=== PATIENT | female | born 1945 | race Caucasian/White ===

== ENCOUNTER 2024-05-02 07:07 | Inpatient (IN) ==
--- NOTE | 2024-05-02 07:25 | Emergency Department Note ---
History of Present Illness General Chief complaint: Constipation Stated complaint: CONSTIPATION, ABD PAIN Time Seen by Provider: 05/02/24 07:13 History of Present Illness This is a 78-year-old female that presents to the emergency department via private vehicle with complaints of "constipation, abdominal pain". Patient presents today with daughter. Patient notes that for the past week she has had constipation. No bowel movement in over a week. She has tried increasing fiber, MiraLAX, milk of magnesia as well as 2 enemas 1 of which produced stool the other did not. She feels bloated and generalized abdominal pain. The patient denies any fevers. She does note some chills. She states that yesterday she presented to [facility] where a CT scan was performed of the abdomen pelvis that she was discharged home on medical magnesia with diagnosis of constipation. She states that she continues to have abdominal discomfort, bloating and now more pronounced discomfort in the right lower quadrant. She is concerned therefore prompting arrival here today. She notes that she is otherwise healthy other than hypothyroidism currently on medication. No known drug allergies. No pertinent surgeries. Home Medications Medication Instructions Recorded Confirmed Type levothyroxine 112 mcg tablet 112 mcg PO QAM 05/02/24 05/02/24 History Allergies Allergy/AdvReac Type Severity Reaction Status Date / Time No Known Allergies Allergy Verified 05/02/24 08:40 Past Med/Surg History Problem List (Updated 05/02/24 @ 10:35 by Brett Barnett PA-C) Abdominal pain (Acute) Renal cyst Asymptomatic bacteriuria Colonic obstruction (Acute) Cystocele with uterine prolapse Medical History Dyslipidemia Hypertension due to stress Hypothyroidism (acquired) Surgical History Hx of tonsillectomy Family History Other Diabetes Hypertension Denies family history of Ovarian cancer Prostate cancer Myocardial infarction Breast cancer Colorectal cancer Social History Smoking Status: Never smoker Second Hand Exposure: No; Do You Dip or Chew Tobacco: No; Hx Alcohol Use: No Preferred Language: Nauruan marital status: Current Living Situation: Spouse current occupational status: employed current occupation: [employer] in [place] How many Children do You have: 4 Feels Safe at Home: Yes Review of Systems A total of 10 systems reviewed and were otherwise negative Physical Exam Vital Signs Vital Signs - 24 hr 05/02/24 07:08 05/02/24 09:11 Temperature 36.6 C Temperature Source Temporal Artery Scan Pulse Rate 108 H Pulse Rate [Apical] 108 H Respiratory Rate 18 20 Blood Pressure 153/86 H Blood Pressure [Right Arm] 122/80 Blood Pressure Mean 108 Blood Pressure Mean [Right Arm] 94 Pulse Oximetry 98 97 Oxygen Delivery Method Room Air Sepsis Recent Fever Within 48 Hours No Sepsis New/Unexplained Change in Mental Status N/A Sepsis Action Taken by Nursing No Action Required VITAL SIGNS - Vital signs and nursing notes were reviewed. Mildly tachycardic, otherwise stable and afebrile. GENERAL - 78-year-old female appearing her stated age who is in no acute distress. Communicates well with provider and answers questions appropriately. SKIN - Without rashes. No meningeal or petechial rash. HEAD - NC/AT. EYES - PERRL with EOMI bilaterally. Sclera anicteric. EARS - No deformities of external structures noted on gross examination bilaterally. External auditory canals without discharge or otorrhea. Tympanic membranes pearly stephen without retraction or bulging. No fluid or purulent material visualized behind the TM. Handle of malleus, umbo, cone of light, pars tensa/flaccid all easily visualized. NOSE - Midline and without cyanosis. No epistaxis or purulent drainage noted. Septum midline without deviation or septal hematoma noted. MOUTH/OROPHARYNX - Without perioral cyanosis. Buccal mucosa pink and moist and without leukoplakia. Tongue midline with equal elevation of palate bilaterally. No tonsillar hypertrophy, erythema, or exudates noted. Good dentition noted. NECK - Neck with FROM. Supple to palpation. No lymphadenopathy noted. No nuchal rigidity. LUNGS - CTA CARDIAC - RRR ABDOMEN - Abdominal contour normal without pulsations or visible masses. BS normoactive all four quadrants. Generalized abdominal tenderness to palpation. Most pronounced in the right lower quadrant. No palpable masses, hepatosplenomegaly, or ascites noted. EXTREMITIES - No clubbing or peripheral cyanosis. +5/5 strength noted in UE/LE bilaterally. NEUROLOGIC - Cranial nerves II through XII grossly intact. PSYCH -alert, oriented and pleasant on exam Course Administered Medications Discontinued Medications Acetaminophen (Ofirmev) 1,000 mg in 100 mls @ 400 mls/hr IV NOW STA Stop: 05/02/24 07:38 Last Infusion: 05/02/24 07:52 Dose: Infused Documented By: Admin: 05/02/24 07:31 Dose: 400 mls/hr Documented By: HS Piperacillin Sod/Tazobactam Sod (Zosyn) 4.5 gm in 100 mls @ 200 mls/hr IV NOW ONE; Protocol Stop: 05/02/24 09:16 Last Infusion: 05/02/24 10:09 Dose: Infused Documented By: Admin: 05/02/24 09:09 Dose: 200 mls/hr Documented By: HS Ioversol (Optiray 320 100ml) 94 ml IV ONCE ONE Stop: 05/02/24 08:21 Last Admin: 05/02/24 08:13 Dose: 94 ml Documented By: MARSHA Medical Decision Making Laboratory Data 05/02/24 07:32 05/02/24 07:32 Lab Results 05/02/24 05/02/24 Range/Units 07:32 07:53 WBC 16.56 H (4.8-10.8) K/ul RBC 5.20 (4.20-5.40) M/uL Hgb 15.9 (12.0-16.0) g/dl Hct 47.4 H (37.0-47.0) % MCV 91.2 (80.0-100.0) fL MCH 30.6 (25.0-34.0) pg MCHC 33.5 (32.0-36.0) g/dL RDW Std Deviation 42.7 (36.4-46.3) fL RDW Coeff of Pradeep 12.8 (11.5-14.5) % Plt Count 383 (130-400) K/uL MPV 9.4 (9.4-12.4) fL Immature Gran % (Auto) 0.5 % Neut % (Auto) 80.0 % Lymph % (Auto) 10.5 % Johnston % (Auto) 8.8 % Eos % (Auto) 0.1 % Baso % (Auto) 0.1 % Neut # (Auto) 13.24 H (1.40-6.50) K/uL Lymph # (Auto) 1.74 (1.20-3.40) K/uL Johnston # (Auto) 1.45 H (0.11-0.59) K/uL Eos # (Auto) 0.02 (0.00-0.50) K/uL Baso # (Auto) 0.02 (0.00-0.20) K/uL Immature Gran # (Auto) 0.09 (0.01-0.20) K/uL Sodium 137 (136-145) mmol/L Potassium 3.5 (3.5-5.1) mmol/L Chloride 99 (98-107) mmol/L Carbon Dioxide 25 (21-32) mmol/L Anion Gap 13 H (3-11) BUN 26 H (6-23) mg/dl Creatinine 0.96 (0.6-1.2) mg/dl Est Cr Clr Drug Dosing 45.4 ml/min eGFR 60.94 BUN/Creatinine Ratio 27.1 H (10-20) Glucose 131 H (70-99(Fasting)) mg/dl Calcium 9.3 (8.6-10.3) mg/dl Total Bilirubin 0.7 (0.2-1.0) mg/dl AST 19 (13-39) U/L ALT 11 (7-52) U/L Alkaline Phosphatase 30 L (34-104) U/L Total Protein 7.6 (6.0-8.3) gm/dl Albumin 4.2 (3.4-5.0) gm/dl Globulin 3.4 (2.5-4.0) gm/dl Albumin/Globulin Ratio 1.2 (0.9-2) Lipase 7 L (11-82) U/L Urine Color Dark Yellow Urine Appearance Cloudy A (Clear) Urine pH 5.5 (4.5-7.5) Ur Specific [place] 1.032 H (1.000-1.030) Urine Protein 1+ H (Negative) Urine Glucose (UA) Negative (Negative) Urine Ketones 3+ H (Negative) Urine Blood Negative (Negative) Urine Nitrite Negative (Negative) Urine Bilirubin Negative (Negative) Urine Urobilinogen Negative (Negative) Ur Leukocyte Esterase 1+ H (Negative) Urine WBC (Auto) 11-20 H (0-5) /hpf Urine RBC (Auto) 0-2 (0-2) /hpf U Hyaline Cast (Auto) 3-5 H (0-2) /lpf U Epithel Cells (Auto) >20 H (0-2) /hpf Urine Bacteria (Auto) 3+ H (None Seen) Imaging Data Radiologist's Impression: Abdomen/Pelvis CT 05/02/24 07:42 CT SCAN OF THE ABDOMEN AND PELVIS WITH IV CONTRAST CLINICAL HISTORY: Constipation. Crampy abdominal pain. COMPARISON STUDY: No priors. TECHNIQUE: Following the IV administration of 94 cc of Optiray 320, CT scan of the abdomen and pelvis is performed from the lung bases to the proximal femora. Images are reviewed in the axial, sagittal, and coronal planes. IV contrast was administered without complication. A dose lowering technique was utilized adhering to the principles of ALARA. CT DOSE: 1571.5 mGy.cm FINDINGS: Lung bases: The heart is enlarged and without pericardial effusion. The coronary arteries are densely calcified. There is elevation of the left hemidiaphragm and bibasilar atelectasis. No airspace consolidation typical for pneumonia or pleural effusion is identified. There is a small hiatal hernia. There are small esophageal varices. Liver: The contrast-enhanced liver is normal in size, contour, and attenuation. There is no intrahepatic biliary ductal dilatation. The hepatic veins and portal veins are patent. Gallbladder: Unremarkable. Spleen: Normal in size and attenuation. Pancreas: Unremarkable. Adrenal glands: Unremarkable. Kidneys: The contrast enhanced kidneys are normal in size and without hydronephrosis. The kidneys enhance symmetrically. An 8.5 cm cyst arises from the right upper pole. Additional subcentimeter cortical hypodensities also likely represent cysts but are too small for definitive characterization. There is a punctate nonobstructing left renal calculus. Abdominal vasculature: The abdominal aorta is normal in course and caliber noting moderate to advanced atherosclerotic calcification. Bowel: There is focal narrowing with shouldering seen in the sigmoid colon on axial image #317. The upstream colon is markedly dilated and filled with stool. The cecum measures up to 10 cm diameter, and this is consistent with a distal clonic obstruction. There is diffuse pericolonic and trace and trace fluid, greatest involving the cecum. No pneumatosis intestinalis or portal venous gas is seen. The small bowel loops are normal in caliber. The appendix is mildly distended and filled with fluid, measuring up to 10 mm axial images are returned and 53. There is no surrounding inflammation and this is likely related to clonic obstruction. Peritoneum: There is trace perihepatic and perisplenic ascites, with a small amount of fluid also seen in the paracolic gutters and pelvis. No intraperitoneal free air is identified. There is a fat-containing umbilical hernia. Lymphadenopathy: None. Pelvic viscera: The bladder is largely decompressed and grossly unremarkable. Uterus and adnexa are normal as visualized. Skeletal structures: The skeletal structures are osteopenic. There is mild to moderate lumbosacral spondylosis. There is a mild chronic superior endplate compression deformity of L3. No lytic or blastic lesions are seen. IMPRESSION: 1. There is evidence of a high-grade colonic obstruction at the level of the sigmoid, where there is a focal transition point with shouldering. This could represents a stricture versus neoplasm. Given the appearance neoplasm is favored. GI and/or surgical evaluation is advised. 2. The upstream colon is markedly distended and filled with stool. The cecum measures up to 10 cm in diameter and there is pericolonic inflammation and fluid. This likely represents an associated stercoral colitis. 3. There is no evidence of metastatic disease in the abdomen or pelvis. 4. The small bowel loops are normal in caliber. 5. Small volume abdominopelvic ascites. 6. Cardiomegaly. 7. Left-sided nephrolithiasis. 8. Additional findings as above. ACT 112: Negative or not required by law. Electronically signed by: Brendon Huang M.D. 05/02/2024 8:37 AM MDM Narrative Patient was seen and evaluated as above in room B09. Review was performed of triage nursing notes and vital signs. I did review the patient's recent visit at [facility]. Patient presents today for ongoing abdominal discomfort. IV access established. Labs were drawn. CT imaging was performed as we will use contrast this time to further assess. Patient medicated with IV acetaminophen for pain. Labs are leukocytosis 16.56. No anemia. There is elevation of BUN at 26 and a mildly elevated anion gap at 13. Hyperglycemia 131. Urinalysis reveals what is likely a contaminated sample. CT scan results as above. Unfortunately the patient does have findings to suggest a high-grade colonic obstruction at the level of the sigmoid with a focal transition point. The patient will require further evaluation and management in the inpatient setting. I discussed this with the hospitalist service, GI service- Dr. Murguia at 9:47 AM, as well as general surgery service at 8:35 AM. Please refer to further documentation regarding her stay. Patient not actively vomiting. Patient resting comfortably at the bedside. Patient will be n.p.o. at this time. I did order broad-spectrum IV antibiotics. GCS: 15 In the evaluation and treatment of this patient the following differential diagnoses were entertained: Bowel obstruction, UTI, pyelonephritis, perforation, diverticulitis, among others Impression & Plan Colonic obstruction, Abdominal pain Discharge Plan Visit Data Chief Complaint: Constipation Stated Complaint: CONSTIPATION, ABD PAIN ED Provider: Tj Sheriff ED Midlevel Provider: Brett Barnett Discharge Problem: Colonic obstruction, Abdominal pain Patient Disposition: Admitted As Inpatient Condition: Good Forms Stand Alone Forms: My [facility] [employer] Prescriptions Prescriptions: No Action levothyroxine 112 mcg tablet 112 mcg PO QAM Referrals Referrals: Mckay Kumar DO [Primary Care Provider] -
[2024-05-02] MEDS: ACETAMINOPHEN 1,000 MG/100 ML VIAL IV STA (07:31)
[2024-05-02 07:44] LABS: Basophils # (auto) 0.02 K/uL (0.00-0.20); Basophils % (auto) 0.1 %; Eosinophils # (auto) 0.02 K/uL (0.00-0.50); Eosinophils % (auto) 0.1 %; Hematocrit (blood only) 47.4 % (37.0-47.0); Hemoglobin 15.9 g/dl (12.0-16.0); Immature Granulocytes # (auto) 0.09 K/uL (0.01-0.20); Immature Granulocytes % (auto) 0.5 %; Lymphocytes # (auto) 1.74 K/uL (1.20-3.40); Lymphocytes % (auto) 10.5 %; Mean Corpuscular Hemoglobin 30.6 pg (25.0-34.0); Mean Corpuscular Hgb Conc 33.5 g/dL (32.0-36.0); Mean Corpuscular Volume 91.2 fL (80.0-100.0); Mean Platelet Volume 9.4 fL (9.4-12.4); Monocytes # (auto) 1.45 K/uL (0.11-0.59); Monocytes % (auto) 8.8 %; Neutrophils # (auto) 13.24 K/uL (1.40-6.50); Platelet Count 383 K/uL (130-400); RDW Coefficient of Variation 12.8 % (11.5-14.5); RDW Standard Deviation 42.7 fL (36.4-46.3); White Blood Count 16.56 K/ul (4.8-10.8)
[2024-05-02 08:00] LABS: Albumin Globulin Ratio 1.2 (0.9-2); Albumin Level 4.2 gm/dl (3.4-5.0); BUN Creatinine Ratio 27.1 (10-20); Bilirubin,Total 0.7 mg/dl (0.2-1.0); Calcium 9.3 mg/dl (8.6-10.3); Creatinine Clr Calc Pharmacy 45.4 ml/min; Globulin 3.4 gm/dl (2.5-4.0); Potassium 3.5 mmol/L (3.5-5.1); Total Protein 7.6 gm/dl (6.0-8.3)
[2024-05-02] MEDS: OPTIRAY 320 100ml IV ONE (08:13)
[2024-05-02 08:37] LABS: Appearance Urine Cloudy (Clear); Bacteria Urine Automated 3+ (None Seen); Bilirubin Urine Negative (Negative); Blood Urine Negative (Negative); Color Urine Dark Yellow; Epithelial Cell Urine Auto >20 /hpf (0-2); Glucose Urine UA Negative (Negative); Ketones Urine 3+ (Negative); Leukocyte Esterase Urine 1+ (Negative); Nitrite Urine Negative (Negative); Protein Urine 1+ (Negative); RBC Urine Automated 0-2 /hpf (0-2); Specific Gravity Urine 1.032 (1.000-1.030); Urobilinogen Urine Negative (Negative); pH Urine 5.5 (4.5-7.5)
--- NOTE | 2024-05-02 08:39 | CT Scan Report ---
CT SCAN OF THE ABDOMEN AND PELVIS WITH IV CONTRAST CLINICAL HISTORY: Constipation. Crampy abdominal pain. COMPARISON STUDY: No priors. TECHNIQUE: Following the IV administration of 94 cc of Optiray 320, CT scan of the abdomen and pelvi s is performed from the lung bases to the proximal femora. Images are reviewed in the axial, sagittal , and coronal planes. IV contrast was administered without complication. A dose lowering technique wa s utilized adhering to the principles of ALARA. CT DOSE: 1571.5 mGy.cm FINDINGS: Lung bases: The heart is enlarged and without pericardial effusion. The coronary arteries are densely calcified. There is elevation of the left hemidiaphragm and bibasilar atelectasis. No airspace conso lidation typical for pneumonia or pleural effusion is identified. There is a small hiatal hernia. The re are small esophageal varices. Liver: The contrast-enhanced liver is normal in size, contour, and attenuation. There is no intrahepa tic biliary ductal dilatation. The hepatic veins and portal veins are patent. Gallbladder: Unremarkable. Spleen: Normal in size and attenuation. Pancreas: Unremarkable. Adrenal glands: Unremarkable. Kidneys: The contrast enhanced kidneys are normal in size and without hydronephrosis. The kidneys enh ance symmetrically. An 8.5 cm cyst arises from the right upper pole. Additional subcentimeter cortica l hypodensities also likely represent cysts but are too small for definitive characterization. There is a punctate nonobstructing left renal calculus. Abdominal vasculature: The abdominal aorta is normal in course and caliber noting moderate to advance d atherosclerotic calcification. Bowel: There is focal narrowing with shouldering seen in the sigmoid colon on axial image #317. The u pstream colon is markedly dilated and filled with stool. The cecum measures up to 10 cm diameter, and this is consistent with a distal clonic obstruction. There is diffuse pericolonic and trace and trac e fluid, greatest involving the cecum. No pneumatosis intestinalis or portal venous gas is seen. The small bowel loops are normal in caliber. The appendix is mildly distended and filled with fluid, deborah uring up to 10 mm axial images are returned and 53. There is no surrounding inflammation and this is likely related to clonic obstruction. Peritoneum: There is trace perihepatic and perisplenic ascites, with a small amount of fluid also see n in the paracolic gutters and pelvis. No intraperitoneal free air is identified. There is a fat-cont aining umbilical hernia. Lymphadenopathy: None. Pelvic viscera: The bladder is largely decompressed and grossly unremarkable. Uterus and adnexa are n ormal as visualized. Skeletal structures: The skeletal structures are osteopenic. There is mild to moderate lumbosacral sp ondylosis. There is a mild chronic superior endplate compression deformity of L3. No lytic or blastic lesions are seen. IMPRESSION: 1. There is evidence of a high-grade colonic obstruction at the level of the sigmoid, where there is a focal transition point with shouldering. This could represents a stricture versus neoplasm. Given t he appearance neoplasm is favored. GI and/or surgical evaluation is advised. 2. The upstream colon is markedly distended and filled with stool. The cecum measures up to 10 cm in diameter and there is pericolonic inflammation and fluid. This likely represents an associated sterco ral colitis. 3. There is no evidence of metastatic disease in the abdomen or pelvis. 4. The small bowel loops are normal in caliber. 5. Small volume abdominopelvic ascites. 6. Cardiomegaly. 7. Left-sided nephrolithiasis. 8. Additional findings as above. ACT 112: Negative or not required by law. Electronically signed by: Brendon Huang M.D. 05/02/2024 8:37 AM
--- NOTE | 2024-05-02 08:41 | Surgery Consultation ---
<Statement entered by Leelee Capone DO - 05/02/24 09:37> I have seen this patient. She reports that not only has she not been having BMs, she also is not passing flatus and has not passed flatus for several days. She will be scheduled for a loop transverse colostomy planned for today. The patient is very amenable to this procedure. Date of Consultation May 02, 2024 Assessment & Plan (1) Colonic obstruction: This is a 78yF with no significant PMH who presents to the [facility] ED on 05/02/24 with complaints of abdominal pain. Patient states she has been running constipated over the last week. This has been associated with some generalized abdominal discomfort, nausea, and some liquid emesis. She ended up going to [facility] yesterday where a CT scan was done without contrast and per ER and patient report mentioned a mild colitis. It was recommended she take milk of magnesia which did not allow her to have a BM. She was not sent home on any antibiotics. Patient states her pain worsened over the last 24 hrs and came into our ER for further evaluation. She underwent a CT a/p that showed evidence of a high-grade colonic obstruction at the level of the sigmoid, where there is a focal transition point with shouldering. This could represents a stricture versus neoplasm. Given the appearance neoplasm is favored. The upstream colon is markedly distended and filled with stool. The cecum measures up to 10 cm in diameter and there is pericolonic inflammation and fluid. This likely represents an associated stercoral colitis. Patient states she is normally regular with her BM's, therefore going a week without one is abnormal for her. She is passing a small amount of flatus, but feels this has decreased. She has had a low appetite this week as she is nervous to eat given her symptoms. She follows with a PCP regularly but tells me she never had a colonoscopy before. She denies any blood in her BMs. Other symptoms include some chills and abdominal bloating. No fevers, chest pain, SOB, CRABTREE, dizziness. Never had surgery on her abdomen before. No family history of GI/colon cancers or IBD (crohns/UC). Today in the ER patient's vital show she is tachycardic to the 100's, afebrile, BP 150/80s. Labs show elevated WBC 16, Hbg 15, K 3.5, Cr 0.9. On exam patient reports sitting up in the chair feels better for her. She appears in no acute distress. Abdomen is softly distended with generalized discomfort to palpation, somewhat worse in the RLQ regions. Agree patient warrants hospitalization. I recommend a GI consultation to see if there is anyway to decompress her bowel, flex sig to evaluate site of concern. IV Abx given findings concerning for stercoral colitis with elevated WBC. We will follow closely and if any signs of deterioration please call and let us know. We will see what the GI team can do prior to making decision on surgical intervention. History of Present Illness History of Present Illness This is a 78yF with no significant PMH who presents to the [facility] ED on 05/02/24 with complaints of abdominal pain. Patient states she has been running constipated over the last week. This has been associated with some generalized abdominal discomfort, nausea, and some liquid emesis. She ended up going to [facility] yesterday where a CT scan was done without contrast and per ER and patient report mentioned a mild colitis. It was recommended she take milk of magnesia which did not allow her to have a BM. She was not sent home on any antibiotics. Patient states her pain worsened over the last 24 hrs and came into our ER for further evaluation. She underwent a CT a/p that showed evidence of a high-grade colonic obstruction at the level of the sigmoid, where there is a focal transition point with shouldering. This could represents a stricture versus neoplasm. Given the appearance neoplasm is favored. The upstream colon is markedly distended and filled with stool. The cecum measures up to 10 cm in diameter and there is pericolonic inflammation and fluid. This likely represents an associated stercoral colitis. Patient states she is normally regular with her BM's, therefore going a week without one is abnormal for her. She is passing a small amount of flatus, but feels this has decreased. She has had a low appetite this week as she is nervous to eat given her symptoms. She follows with a PCP regularly but tells me she never had a colonoscopy before. She denies any blood in her BMs. Other symptoms include some chills and abdominal bloating. No fevers, chest pain, SOB, CRABTREE, dizziness. Never had surgery on her abdomen before. No family history of GI/colon cancers or IBD (crohns/UC). Allergies Allergy/AdvReac Type Severity Reaction Status Date / Time No Known Allergies Allergy Verified 05/02/24 08:40 Home Medications Medication Instructions Recorded Confirmed Type levothyroxine 112 mcg tablet 112 mcg PO QAM 05/02/24 05/02/24 History Patient History Medical History Dyslipidemia Hypertension due to stress Hypothyroidism (acquired) Surgical History Hx of tonsillectomy Family History Other Diabetes Hypertension Denies family history of Ovarian cancer Prostate cancer Myocardial infarction Breast cancer Colorectal cancer Social History Smoking Status: Never smoker Second Hand Exposure: No; Do You Dip or Chew Tobacco: No; Hx Alcohol Use: No Preferred Language: Tamaz[place] marital status: Current Living Situation: Spouse current occupational status: employed current occupation: [employer] How many Children do You have: 4 Feels Safe at Home: Yes Review of Systems Constitutional: + chills and + anorexia; no fever Respiratory: no dyspnea Cardiovascular: no chest pain Gastrointestinal: + abdominal pain (generalized abdominal pain), + bloating, + nausea, + vomiting (monday) and + constipation; no blood in stools Genitourinary: no urinary complaints Physical Exam Physical Exam: awake, alert, sitting up in a chair in no distress Constitutional: well developed and well nourished Respiratory: normal respiratory effort Cardiovascular: Rate/Rhythm: + tachycardic Gastrointestinal (Abdomen): Inspection/Auscultation: + abdomen distended Percussion/Palpation: + abdomen tender (tenderness throughout abdomen generalized, worse in RLQ) and abdomen soft; no guarding Results & Data Vital Signs (Past 12 Hours) Vital Signs Temp Pulse Resp BP Pulse Ox 05/02/24 07:08 97.9 F 108 H 18 153/[address] SCAN OF THE ABDOMEN AND PELVIS WITH IV CONTRAST CLINICAL HISTORY: Constipation. Crampy abdominal pain. COMPARISON STUDY: No priors. TECHNIQUE: Following the IV administration of 94 cc of Optiray 320, CT scan of the abdomen and pelvis is performed from the lung bases to the proximal femora. Images are reviewed in the axial, sagittal, and coronal planes. IV contrast was administered without complication. A dose lowering technique was utilized adhering to the principles of ALARA. CT DOSE: 1571.5 mGy.cm FINDINGS: Lung bases: The heart is enlarged and without pericardial effusion. The coronary arteries are densely calcified. There is elevation of the left hemidiaphragm and bibasilar atelectasis. No airspace consolidation typical for pneumonia or pleural effusion is identified. There is a small hiatal hernia. There are small esophageal varices. Liver: The contrast-enhanced liver is normal in size, contour, and attenuation. There is no intrahepatic biliary ductal dilatation. The hepatic veins and portal veins are patent. Gallbladder: Unremarkable. Spleen: Normal in size and attenuation. Pancreas: Unremarkable. Adrenal glands: Unremarkable. Kidneys: The contrast enhanced kidneys are normal in size and without hydronephrosis. The kidneys enhance symmetrically. An 8.5 cm cyst arises from the right upper pole. Additional subcentimeter cortical hypodensities also likely represent cysts but are too small for definitive characterization. There is a punctate nonobstructing left renal calculus. Abdominal vasculature: The abdominal aorta is normal in course and caliber noting moderate to advanced atherosclerotic calcification. Bowel: There is focal narrowing with shouldering seen in the sigmoid colon on axial image #317. The upstream colon is markedly dilated and filled with stool. The cecum measures up to 10 cm diameter, and this is consistent with a distal clonic obstruction. There is diffuse pericolonic and trace and trace fluid, greatest involving the cecum. No pneumatosis intestinalis or portal venous gas is seen. The small bowel loops are normal in caliber. The appendix is mildly distended and filled with fluid, measuring up to 10 mm axial images are returned and 53. There is no surrounding inflammation and this is likely related to clonic obstruction. Peritoneum: There is trace perihepatic and perisplenic ascites, with a small amount of fluid also seen in the paracolic gutters and pelvis. No intraperitoneal free air is identified. There is a fat-containing umbilical hernia. Lymphadenopathy: None. Pelvic viscera: The bladder is largely decompressed and grossly unremarkable. Uterus and adnexa are normal as visualized. Skeletal structures: The skeletal structures are osteopenic. There is mild to m oderate lumbosacral spondylosis. There is a mild chronic superior endplate compression deformity of L3. No lytic or blastic lesions are seen. IMPRESSION: 1. There is evidence of a high-grade colonic obstruction at the level of the sigmoid, where there is a focal transition point with shouldering. This could represents a stricture versus neoplasm. Given the appearance neoplasm is favored. GI and/or surgical evaluation is advised. 2. The upstream colon is markedly distended and filled with stool. The cecum measures up to 10 cm in diameter and there is pericolonic inflammation and fluid. This likely represents an associated stercoral colitis. 3. There is no evidence of metastatic disease in the abdomen or pelvis. 4. The small bowel loops are normal in caliber. 5. Small volume abdominopelvic ascites. 6. Cardiomegaly. 7. Left-sided nephrolithiasis. 8. Additional findings as above. ACT 112: Negative or not required by law. Electronically signed by: Brendon Huang M.D. 05/02/2024 8:37 AM PG Care Time/CCT Total # of Minutes Spent Total Time Spent with Patient: Total time spent is greater than 50% in coordination of care (as documented) at patient's floor/unit and/or counseling patient: Coding Level of Care Code 69506 OP VST NEW MOD 45 MIN Diagnoses Colonic obstruction K56.609
[2024-05-02] MEDS: PIPERACILLIN/TAZOBACTAM 4.5 GM/100 ML BAG IV ONE (09:09)
--- NOTE | 2024-05-02 09:14 | History & Physical Report ---
<Statement entered by Aleisha Jones MD - 05/02/24 17:37> I have reviewed vital signs, chart notes, labs and imaging. I have personally seen, evaluated and examined the patient. I have also discussed the management of the patient with the DAVID and I agree with the exam findings documented in the history and physical examination and the documented assessment and plan unless otherwise stated below. Destiny has been very healthy only has hypothyroidism, no surgical history no hospitalizations other than for childbirth Underwent colostomy placement today for a colonic obstruction, planned for flex sig tomorrow to evaluate colon stricture versus mass Date of Service May 02, 2024 Assessment & Plan (1) Colonic obstruction: Plan: Presents with 7 days without a bowel movement despite aggressive OTC measures, including enema and abdominal pain worse at night. CTAP: evidence of a high-grade colonic obstruction at the level of the sigmoid, where there is a focal transition point with shouldering. This could represents a stricture versus neoplasm. Given the appearance neoplasm is favored.The upstream colon is markedly distended and filled with stool. The cecum measures up to 10 cm in diameter and there is pericolonic inflammation and fluid. This likely represents an associated stercoral colitis. General surgery consulted - plan for OR today for colostomy - continue IV abx for stercoral colitis GI consulted Started on Zosyn in the ED, will continue Keep NPO, plan for OR today so not started on IV fluids in setting of national fluid shortage, if NPO after surgery should consider (2) Hypertension: Plan: Not on medication at baseline - pressure elevated on admission 153/86, but repeat WNL - admit to med/tele in case need for IV antihypertensives (3) Asymptomatic bacteriuria: Plan: UA suspicious with 3+ bacteria, and >20 epis - clinically asymptomatic, denies frequent UTIs - on Zosyn for GI concerns UC pending (4) Renal cyst: Plan: Incidental finding - 8.5cm cyst from right upper pole - recommend outpatient follow up/monitoring Plan Chronic stable medical conditions: * hypothyroid - continue Synthroid Dipso: med/tele, keep NPO Code Status: full code DVT proh: SCDs, hold chemical with surgery History of Present Illness Primary Care Provider: Mckay Kumar DO Destiny with a 78F with a past medical hx of hypothyroidism and HTN not on medications. She presents to the ER accompanied by her daughter with a chief concern of constipation. States that she last had a bowel movement 1 week ago, last 04/25. Since Monday she has been experiencing cramping. Has been taking MiraLAX, milk of magnesium and is attempted to enemas at home without a bowel movement. The cramping/pain is mainly in the lower abdomen. Patient aware that CT scan shows an obstruction. Has not had a colonoscopy before. Has not been seen by surgery or GI at the time of my encounter. She reports that she has a prolapsed bladder and chronically wears depends. No UTI symptoms currently. Recent changes in medications: no Take medications today: no Alcohol/smoking: no CPAP: no Code Status: Full Code ER course: IV tylenol Zosyn Allergies Allergy/AdvReac Type Severity Reaction Status Date / Time No Known Allergies Allergy Verified 05/02/24 08:40 Home Medications Medication Instructions Recorded Confirmed Type levothyroxine 112 mcg tablet 112 mcg PO QAM 05/02/24 05/02/24 History Past Med/Surg History Problem List (Updated 05/02/24 @ 10:10 by Camille Red PA-C) Renal cyst Asymptomatic bacteriuria Colonic obstruction Cystocele with uterine prolapse Medical History Dyslipidemia Hypertension due to stress Hypothyroidism (acquired) Surgical History Hx of tonsillectomy Family History Other Diabetes Hypertension Denies family history of Ovarian cancer Prostate cancer Myocardial infarction Breast cancer Colorectal cancer Social History Smoking Status: Never smoker Second Hand Exposure: No; Do You Dip or Chew Tobacco: No; Hx Alcohol Use: No Preferred Language: Cuban marital status: Current Living Situation: Spouse current occupational status: employed current occupation: [employer] in [place] How many Children do You have: 4 Feels Safe at Home: Yes Review of Systems Review of Systems: All systems reviewed & are unremarkable except as noted in Subjective Physical Exam Physical Exam: General: NAD, VS as above, sitting up in the chair Resp: normal respiratory effort, lungs clear to auscultation CV: tachycardic but regular, no murmur, Abd: hypoactive bowel sounds, mild lower abdominal tenderness Extremities: Moves all extremities, no edema Neuro: A&O x3, Results & Data Results & Data Vital Signs (Past 12 Hours) Vital Signs Temp Pulse Pulse Resp BP BP Pulse Ox 05/02/24 09:11 108 H 20 122/80 97 05/02/24 07:08 97.9 F 108 H 18 153/86 H 98 O2 Del Method 05/02/24 09:11 Room Air 05/02/24 07:08 Laboratory Results CBC and chemistry reviewed Diagnostic Findings CTAP reviewed Code Status & VTE Plan VTE Prophylaxis Plan VTE Prophylaxis will be ordered: Yes PG Care Time/CCT Total # of Minutes Spent Total Time Spent with Patient: Total time spent is greater than 50% in coordination of care (as documented) at patient's floor/unit and/or counseling patient: Coding Level of Care Code 55806 INT INP/OBS CARE 3/75MIN Diagnoses Colonic obstruction K56.609 Hypertension I10 Asymptomatic bacteriuria R82.71 Renal cyst N28.1
--- NOTE | 2024-05-02 11:23 | Anesthesiology Consultation ---
Date of Service May 02, 2024 Assessment & Plan Chart Review Chart Review: Acceptable Risk for Surgery and Patient NOT seen in Pre Admission Testing Consults Requested none ASA [id number] Proposed Anesthesia Anesthesia Type: General History Surgery Operation Date: 05/02/24 08:20 Proposed Procedures p Laparoscopic Assisted Open Colostomy - Leelee Capone DO Height/Weight Height: 5 ft Weight: 78.4 kg Allergies Allergy/AdvReac Type Severity Reaction Status Date / Time No Known Allergies Allergy Verified 05/02/24 08:40 Medications Home Medications Medication Instructions Recorded Confirmed Last Taken levothyroxine 112 mcg tablet 112 mcg PO QAM 05/02/24 05/02/24 05/01/24 Past Medical History Medical History Dyslipidemia Hypertension due to stress Hypothyroidism (acquired) ASCVD Aorta RBBB/LAFB small esophageal varices small hiatal hernia cardiomegaly Exercise / Class Metabolic Activity II 4-5 Yardwork/Stairs/Walk up hill Past Family History Family History Other Diabetes Hypertension Denies family history of Ovarian cancer Prostate cancer Myocardial infarction Breast cancer Colorectal cancer Past Surgical History Surgical History Hx of tonsillectomy Past Anesthesia History No Hx of Anesthesia Complications and No Family Hx of Anesthesia Complications History of PONV No Hx of PONV and No Hx of Motion Sickness Social History Smoking Status: Never smoker Do You Dip or Chew Tobacco: No Hx Alcohol Use: No Physical Exam Vital Signs Last Vital Signs Temp 36.6 C 05/02/24 07:08 Pulse 102 H 05/02/24 11:05 Resp 20 05/02/24 11:05 BP 146/92 H 05/02/24 11:05 Pulse Ox 97 05/02/24 11:05 O2 Del Method Room Air 05/02/24 11:06 Testing Laboratory Results 05/02/24 07:32 05/02/24 07:32 Urine Color Dark Yellow 05/02/24 07:53 Urine Appearance Cloudy (Clear) A 05/02/24 07:53 Urine pH 5.5 (4.5-7.5) 05/02/24 07:53 Ur Specific [place] 1.032 (1.000-1.030) H 05/02/24 07:53 Urine Protein 1+ (Negative) H 05/02/24 07:53 Urine Glucose (UA) Negative (Negative) 05/02/24 07:53 Urine Ketones 3+ (Negative) H 05/02/24 07:53 Urine Nitrite Negative (Negative) 05/02/24 07:53 Ur Leukocyte Esterase 1+ (Negative) H 05/02/24 07:53 Urine WBC (Auto) 11-20 /hpf (0-5) H 05/02/24 07:53 Urine RBC (Auto) 0-2 /hpf (0-2) 05/02/24 07:53 U Hyaline Cast (Auto) 3-5 /lpf (0-2) H 05/02/24 07:53 U Epithel Cells (Auto) >20 /hpf (0-2) H 05/02/24 07:53 Urine Bacteria (Auto) 3+ (None Seen) H 05/02/24 07:53 Electrocardiogram Date: 05/02/24 Findings: + RBBB and + ST @ (@107;LAFB) Other Testing 05/02/2024 CT scan Abd.- small H/H;small esophageal varices;cardiomegaly;dense calcifications of coronary arteries;ASCVD Aorta
[2024-05-02] MEDS ORDERED: FLUMAZENIL 0.1 MG/1 ML 10 ML VIAL IV PRN (11:42)
[2024-05-02] MEDS ORDERED: NALOXONE HCL 0.4 MG/1 ML VIAL/CARP IV PRN (11:42)
[2024-05-02] MEDS ORDERED: LABETALOL HCL IV 5 MG/ML 20ML IV PRN (11:42)
[2024-05-02] MEDS ORDERED: ONDANSETRON INJ 2 MG/ML 2 ML VIAL IV PRN ×2 (11:42→15:18)
[2024-05-02] MEDS ORDERED: ATROPINE SULFATE 0.1 MG/ML 10ML SYR IV PRN (11:42)
[2024-05-02] MEDS ORDERED: ePHEDrine sulfate 50 MG/ML AMP IV PRN (11:42)
[2024-05-02] MEDS ORDERED: HYDROmorphone INJ 1 MG/ML SYRINGE IV PRN (11:42)
[2024-05-02] MEDS ORDERED: PROMETHAZINE HCL 6.25 MG in SODIUM CHLORIDE 0.9% 50 ML IV PRN (11:42)
[2024-05-02] MEDS: LACTATED RINGER'S 1,000 ML IV SCH (11:43)
[2024-05-02] MEDS ORDERED: fentaNYL citrate PF 100 MCG/2 ML VIAL ONE (11:59)
[2024-05-02] MEDS ORDERED: ONDANSETRON INJ 2 MG/ML 2 ML VIAL ONE (11:59)
[2024-05-02] MEDS ORDERED: DEXAMETHASONE SOD INJ 4 MG/ML VIAL ONE (11:59)
[2024-05-02] MEDS ORDERED: LIDOCAINE 2% 2 ML VIAL/AMP(20MG/ML) INFIL ONE (11:59)
[2024-05-02] MEDS ORDERED: ROCURONIUM BROMIDE 10 MG/ML 5 ML VIAL IV ONE (11:59)
[2024-05-02] MEDS ORDERED: PROPOFOL IV EMULSION 10 MG/ML 20 ML VIAL IV ONE (11:59)
[2024-05-02] MEDS ORDERED: MIDAZOLAM HCL 1 MG/ML 2ML VIAL ONE (11:59)
[2024-05-02] MEDS ORDERED: ePHEDrine sulfate 50 MG/ML AMP ONE (13:14)
[2024-05-02] MEDS ORDERED: SUGAMMADEX SODIUM 200 MG/2 ML VIAL IV ONE (13:51)
[2024-05-02] MEDS: BUPIVACAINE/EPINEPHRINE 0.5% MPF 1:200,000 30 ML VIAL ONE (14:06)
--- NOTE | 2024-05-02 14:25 | Operative Report ---
PG Post Operative Report Pre & Post Diagnosis Operation Date: 05/02/24 08:20 Pre-Op Diagnosis: Colonic obstruction Post-Op Diagnosis: Colonic obstruction I identified the patient and participated in the time-out.: Yes Procedure Operation Date: 05/02/24 08:20 Actual Procedures p Laparoscopic Assisted Open Colostomy(Not Applicable) - Leelee Herman DO Surgeon Leelee Capone DO Records Management Technician Fermin Arthur NP Estimated Blood Loss 5 Findings Consistent with Post-Op Diagnosis dilated transverse colon Specimens None Anesthesia Type General Complications None Description of Procedure The patient was brought back to the operating room and placed on the operating room table in supine position. She was connected to cardiac and oxygen monitoring, supplemental O2 was provided and SCDs were applied to bilateral lower extremities. The patient was administered general anesthesia and a secure airway was established. A Fraser catheter was inserted. The abdomen was prepped and draped in typical sterile fashion and a timeout was conducted. After marking the area of planned incision with a sterile marking pen at the right upper quadrant, local anesthetic was used anesthetize the skin and subcutaneous tissues. An incision was made with a 15 blade. The incision was carried down to the muscle fascia using cautery. The fascia was entered with cautery. The peritoneum was identified. This was grasped with hemostats and entered using a Metzenbaums. The transverse colon was identified and elevated into the wound after some mobilization. A colotomy was made using cautery and the colostomy was matured using 4-0 Vicryl suture. Rubber bolsters were used to bridge the stoma. The bolsters were secured in place with Nylon suture. The abdomen was wiped clean with a saline soaked lap pad and dried. A colostomy appliance was applied. The patient tolerated the procedure well. She was awakened from anesthesia, the secure airway and Fraser catheter were removed. The patient was transferred recovery in stable condition. I attest to the content of the Intraoperative Record and any orders documented therein. Any exceptions are noted below.
[2024-05-02] MEDS: fentaNYL citrate PF 100 MCG/2 ML VIAL IV PRN (14:28)
--- NOTE | 2024-05-02 15:06 | Electrocardiogram Report ---
Test Reason : Blood Pressure : */* mmHG Vent. Rate : 107 BPM Atrial Rate : 107 BPM P-R Int : 172 ms QRS Dur : 136 ms QT Int : 408 ms P-R-T Axes : 42 142 -7 degrees QTcB Int : 544 ms Sinus tachycardia with occasional Premature ventricular complexes Right bundle branch block Left posterior fascicular block Bifascicular block Abnormal ECG No previous ECGs available Confirmed by Teo Howard ([id number]) on 05/02/2024 3:06:20 PM Referred By: REFERRED SELF Confirmed By: Teo Howard
[2024-05-02] MEDS ORDERED: ACETAMINOPHEN 1,000 MG/100 ML VIAL IV PRN ×2 (15:18)
[2024-05-02] MEDS ORDERED: MoRPHine SULFATE 4 MG/ML 1 ML CARP\\VIAL IV PRN (15:18)
[2024-05-02] MEDS ORDERED: oxyCODONE/ACETAMINOPHEN 5mg/325mg TAB PO PRN ×2 (15:18)
--- NOTE | 2024-05-02 15:25 | Anesthesiology Progress Note ---
Date of Service May 02, 2024 Anesthesia Post Procedure Vital Signs Vital Signs: Temp Pulse Pulse Pulse Resp BP BP 05/02/24 15:22 36.5 C 85 18 05/02/24 15:06 36.9 C 05/02/24 14:50 86 16 145/59 H 05/02/24 14:40 92 H 16 156/60 H 05/02/24 14:30 81 16 144/60 H 05/02/24 14:21 37.0 C 81 16 05/02/24 11:20 36.7 C 109 H 16 05/02/24 11:06 05/02/24 11:05 102 H 20 05/02/24 09:11 108 H 20 05/02/24 07:08 36.6 C 108 H 18 153/86 H BP Pulse Ox O2 Del Method O2 Flow Rate 05/02/24 15:22 130/79 95 Nasal Cannula 2 05/02/24 15:06 05/02/24 14:50 95 Nasal Cannula 2 05/02/24 14:40 96 Oxymask 5 05/02/24 14:30 97 Oxymask 5 05/02/24 14:21 158/91 H 97 Oxymask 5 05/02/24 11:20 153/88 H 92 Room Air 05/02/24 11:06 Room Air 05/02/24 11:05 146/92 H 97 Room Air 05/02/24 09:11 122/80 97 Room Air 05/02/24 07:08 98 Pain Intensity Abdomen: Pain Intensity: 5 Right Lower Abdomen: Pain Intensity: 7 Transfer of Care Handoff Completed per policy Notes Mental Status: alert / awake / arousable Patient Amnestic to Procedure: Yes Nausea / Vomiting: adequately controlled Pain: adequately controlled Airway Patency, RR, SpO2: stable & adequate BP & HR: stable & adequate Hydration State: stable & adequate Anesthetic Complications: no major complications apparent
[2024-05-02] MEDS ORDERED: PNEUMOCOCCAL VACCINE (PCV20) 20-VAL CONJ-DIP CRM/PF 0.5 ML SYR IM ONE (15:28)
[2024-05-02] MEDS: MoRPHine SULFATE 2 MG/ML CARP IV PRN (16:04)
[2024-05-02] MEDS: PIPERACILLIN/TAZOBACTAM 4.5 GM/100 ML BAG IV SCH (16:38)
--- NOTE | 2024-05-02 17:36 | Communication Note ---
Date of Service: May 02, 2024 I examined Destiny postoperatively from colostomy placement. Dr. Nimo Herman also came in for postop check at this time. Destiny is doing well she has some abdominal pain but currently well-controlled, tolerating sips of water. having active bowel tones and good stool output from the ostomy, the site looks pink and well-perfused. lungs are clear heart is regular and she is AOx4. Her daughter is at bedside she did have a few beats of NSVT on telemetry, ordered electrolyte check with BMP and magnesium. She does not have any cardiac history
[2024-05-02 18:24] LABS: BUN Creatinine Ratio 27.7 (10-20); Creatinine Clr Calc Pharmacy 52.6 ml/min; Magnesium 2.5 mg/dl (1.7-2.4); Potassium 3.7 mmol/L (3.5-5.1)
--- NOTE | 2024-05-02 18:30 | Gastrointestinal Consultation ---
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 Sigmoidoscopy with biopsies tomorrow. The patient will follow with surgery. History of Present Illness Reason for Consultation: Sigmoid obstruction, likely due to malignancy. Attending Physician: Aleisha Jones MD History of Present Illness About 1 week history of abdominal pain and nausea with vomiting. No bowel movements for few days. Presented to the emergency room. CT scan showed high-grade colonic obstruction at the level of the sigmoid. The proximal colon is markedly dilated. The patient underwent transverse colostomy. Gastroenterology was consulted for sigmoidoscopy to identify the sigmoid obstruction which is likely malignant. The patient never had colonoscopy. No family history of colon cancer. Allergies Allergy/AdvReac Type Severity Reaction Status Date / Time No Known Allergies Allergy Verified 05/02/24 08:40 Home Medications Medication Instructions Recorded Confirmed Type levothyroxine 112 mcg tablet 112 mcg PO QAM 05/02/24 05/02/24 History Patient History Medical History Dyslipidemia Hypertension due to stress Hypothyroidism (acquired) Surgical History Hx of tonsillectomy Family History Other Diabetes Hypertension Denies family history of Ovarian cancer Prostate cancer Myocardial infarction Breast cancer Colorectal cancer Social History Smoking Status: Never smoker Second Hand Exposure: No; Do You Dip or Chew Tobacco: No; Tobacco Cessation Education Requested by Patient: No Hx Alcohol Use: No Hx Substance Use: No Preferred Language: [place] Communication Ability: Effective Front End Technician Required: No Beliefs That Will Affect Care: None marital status: Current Living Situation: Spouse current occupational status: employed current occupation: [employer] in [place] How many Children do You have: 4 Other Information That Helps Us Care for You: No Feels Safe at Home: Yes Safety Concerns: Feels Safe At This Time and Afraid for Self Assistive Devices: Glasses Review of Systems Review of Systems: Constitutional: Denies weight loss, chills, fever, fatigue. Respiratory: Denies cough, denies shortness of breath. Cardiovascular: Denies chest pain and palpitations. Gastrointestinal: Denies nausea, vomiting, diarrhea, constipation, abdominal pain. Physical Exam Physical Exam: Constitutional: WD/WN, vitals as above Respiratory: normal respiratory effort, lungs clear to auscultation Cardiovascular: RRR, no murmur, no edema Gastrointestinal (Abdomen): normal bowel sounds, soft, nontender, no hepatosplenomegaly. Colostomy in the mid abdomen with brown stool. Neurological: Oriented x 3, grossly no focal abnormalities, speech is intact. Results & Data Vital Signs (Past 12 Hours) Vital Signs Temp Pulse Pulse Pulse Resp BP BP 05/02/24 16:35 36.4 C L 84 18 05/02/24 15:55 84 05/02/24 15:22 36.5 C 85 18 05/02/24 15:06 36.9 C 05/02/24 14:50 86 16 145/59 H 05/02/24 14:40 92 H 16 156/60 H 05/02/24 14:30 81 16 144/60 H 05/02/24 14:21 37.0 C 81 16 05/02/24 11:20 36.7 C 109 H 16 05/02/24 11:06 05/02/24 11:05 102 H 20 05/02/24 09:11 108 H 20 05/02/24 07:08 36.6 C 108 H 18 153/86 H BP Pulse Ox O2 Del Method O2 Flow Rate 05/02/24 16:35 146/81 H 91 Nasal Cannula 2 05/02/24 15:55 05/02/24 15:22 130/79 95 Nasal Cannula 2 05/02/24 15:06 05/02/24 14:50 95 Nasal Cannula 2 05/02/24 14:40 96 Oxymask 5 05/02/24 14:30 97 Oxymask 5 05/02/24 14:21 158/91 H 97 Oxymask 5 05/02/24 11:20 153/88 H 92 Room Air 05/02/24 11:06 Room Air 05/02/24 11:05 146/92 H 97 Room Air 05/02/24 09:11 122/80 97 Room Air 05/02/24 07:08 98 PG Care Time/CCT Total # of Minutes Spent Total Time Spent with Patient: Total time spent is greater than 50% in coordination of care (as documented) at patient's floor/unit and/or counseling patient: Coding Level of Care Code 53062 INT INP/OBS CARE MIN Diagnoses Colonic obstruction K56.609
[2024-05-02] MEDS ORDERED: SOD PHOSPHATE/SOD BIPHOSPHATE ENEMA 132 ML BTL PR ONE ×3 (23:00)
[2024-05-02] MEDS: SOD PHOSPHATE/SOD BIPHOSPHATE ENEMA 132 ML BTL PR ONE (23:28)
[2024-05-03] MEDS: LEVOTHYROXINE SODIUM 112 MCG TABLET PO SCH (05:56)
[2024-05-03 07:10] LABS: Basophils # (auto) 0.02 K/uL (0.00-0.20); Basophils % (auto) 0.1 %; Hematocrit (blood only) 38.4 % (37.0-47.0); Hemoglobin 12.8 g/dl (12.0-16.0); Immature Granulocytes # (auto) 0.07 K/uL (0.01-0.20); Immature Granulocytes % (auto) 0.5 %; Lymphocytes # (auto) 1.81 K/uL (1.20-3.40); Lymphocytes % (auto) 11.7 %; Mean Corpuscular Hemoglobin 30.7 pg (25.0-34.0); Mean Corpuscular Hgb Conc 33.3 g/dL (32.0-36.0); Mean Corpuscular Volume 92.1 fL (80.0-100.0); Mean Platelet Volume 9.7 fL (9.4-12.4); Monocytes # (auto) 1.59 K/uL (0.11-0.59); Monocytes % (auto) 10.3 %; Neutrophils # (auto) 11.92 K/uL (1.40-6.50); Neutrophils % (auto) 77.4 %; Platelet Count 301 K/uL (130-400); RDW Standard Deviation 43.8 fL (36.4-46.3); Red Blood Count 4.17 M/uL (4.20-5.40); White Blood Count 15.41 K/ul (4.8-10.8)
[2024-05-03 07:18] LABS: BUN Creatinine Ratio 21.1 (10-20); Calcium 8.8 mg/dl (8.6-10.3); Creatinine Clr Calc Pharmacy 46.4 ml/min; Potassium 3.6 mmol/L (3.5-5.1)
--- NOTE | 2024-05-03 08:13 | Surgery Progress Note ---
Date of Service May 03, 2024 Assessment & Plan (1) Obstipation: (2) Abdominal pain: Plan: POD 1 s/p transverse loop colostomy. HD stable, afebrile. Leukocytosis slightly improved down to 15.4 from 16.5 yesterday. Patient is on schedule for a sigmoidoscopy this afternoon with GI for diagnostic evaluation of the strictured area. GI has requested 2 fleet enemas 1 hour prior to the examination and this was communicated to the nurse, and an order will be placed. NPO until after GI's procedure. From a surgical standpoint, she may be started on a low fiber diet and discharged home when medically appropriate. She may follow up with me in the office in 2 weeks. Admission and Anticipated Discharge Date Admission Date: May 02, 2024 Subjective Patient was seen and examined this am. She denies abdominal pain, n/v and has not had any f/c. She is expecting sigmoidoscopy this afternoon. Physical Exam Constitutional: + obese; not ill appearing, not in distr ess and not diaphoretic Respiratory: normal respiratory effort; no respiratory distress, no labored breathing and does not use accessory muscles Gastrointestinal (Abdomen): colostomy present at RUQ and is viable functioning with liquid stool in the bag Results & Data Vital Signs (Past 12 Hours) Vital Signs Temp Pulse Pulse Resp BP BP Pulse Ox 05/03/24 08:04 36.8 C 83 18 118/68 94 05/03/24 03:00 36.9 C 80 16 111/68 92 05/02/24 23:26 36.8 C 82 16 102/63 89 L 05/02/24 21:39 79 05/02/24 20:30 O2 Del Method O2 Flow Rate 05/03/24 08:04 Nasal Cannula 3 05/03/24 03:00 Room Air 05/02/24 23:26 Nasal Cannula 3 05/02/24 21:39 05/02/24 20:30 Nasal Cannula 2 PG Care Time/CCT Total # of Minutes Spent Total Time Spent with Patient: Total time spent is greater than 50% in coordination of care (as documented) at patient's floor/unit and/or counseling patient: Coding Level of Care Code 33215 Post Operative Follow-Up Diagnoses Obstipation K59.00 Abdominal pain R10.9
[2024-05-03] MEDS ORDERED: SOD PHOSPHATE/SOD BIPHOSPHATE ENEMA 132 ML BTL PR ONE ×2 (08:50)
--- NOTE | 2024-05-03 09:56 | History & Physical Bridge Note ---
Date of Service May 03, 2024 History & Physical Bridge Note I have examined the patient, reviewed the History & Physical and in the interval since the performance of the History & Physical I have noted the following changes of clinical significance: no changes noted. Patient is resting out of bed comfortably. She notes some abdominal discomfort, but overall is recovering well from her surgical intervention on 05/02/24. I did confirm with pharmacy that there are active orders for 2 fleet enemas to be given prior to her sigmoidoscopy today. Keep NPO & proceed with flex sig for biopsies. Supervising Physician Co-Signing Physician Notes I examined the patient and reviewed patient's chart , laboratory data and imaging studies. I agree with with assessment and plan of care as suggested by advanced practice provider
[2024-05-03] MEDS: SOD PHOSPHATE/SOD BIPHOSPHATE ENEMA 132 ML BTL PR SCH (13:27)
--- NOTE | 2024-05-03 15:07 | Anesthesiology Consultation ---
Date of Service May 03, 2024 Assessment & Plan (1) Encounter for pre-operative examination: Chart Review Chart Review: Acceptable Risk for Surgery and Patient NOT seen in Pre Admission Testing Consults Requested none History Surgery Operation Date: 05/02/24 08:20 Proposed Procedures p Laparoscopic Assisted Open Colostomy - Leelee Capone DO Operation Date: 05/03/24 16:30 Proposed Procedures p Flexible Sigmoidoscopy Shantal Murguia MD Height/Weight Height: 5 ft Weight: 80 kg Allergies Allergy/AdvReac Type Severity Reaction Status Date / Time No Known Allergies Allergy Verified 05/02/24 08:40 Medications Home Medications Medication Instructions Recorded Confirmed Last Taken levothyroxine 112 mcg tablet 112 mcg PO QAM 05/02/24 05/02/24 05/01/24 Active Medications Generic Name Dose Route Start Last Admin Trade Name Freq PRN Reason Stop Dose Admin Piperacillin Sod/Tazobactam Sod 4.5 gm in 100 mls @ 25 mls/hr 05/02/24 15:30 05/03/24 12:20 Zosyn IV 05/12/24 15:29 Infused Q8H PAULINE Infusion Protocol Levothyroxine Sodium 112 mcg 05/03/24 06:30 05/03/24 05:56 Levothyroxine Sodium 112 Mcg Tablet PO 06/02/24 06:29 112 mcg DAILYBB PAULINE Administration Morphine Sulfate 2 mg 05/02/24 15:18 05/02/24 16:04 Morphine Sulfate 2 Mg/Ml Carp IV 05/16/24 15:17 2 mg Q3H PRN Administration Moderate Pain (Scale 4, 5, 6) NPO Date Last Intake of Fluids: 05/03/24 Time Last Intake of Fluids: 00:01 Date Last Intake of Solids: 05/01/24 Time Last Intake of Solids: 19:00 Past Medical History Medical History (Updated 05/03/24 @ 15:07 by Jadon León MD) Encounter for pre-operative examination Colonic obstruction Dyslipidemia Hypertension due to stress Hypothyroidism (acquired) Past Family History Family History Other Diabetes Hypertension Denies family history of Ovarian cancer Prostate cancer Myocardial infarction Breast cancer Colorectal cancer Past Surgical History Surgical History H/O colectomy (05/02/24) Laparoscopic Assisted Open Colostomy(Not Applicable) - Leelee Herman, Hx of tonsillectomy Social History Smoking Status: Never smoker Do You Dip or Chew Tobacco: No Hx Alcohol Use: No Hx Substance Use: No substance use type: does not use Physical Exam Vital Signs Last Vital Signs Temp 36.9 C 05/03/24 14:50 Pulse 84 05/03/24 14:54 Resp 18 05/03/24 14:50 BP 142/82 H 05/03/24 14:50 Pulse Ox 92 05/03/24 14:50 O2 Del Method Room Air 05/03/24 14:50 O2 Flow Rate 3 05/03/24 10:14 Testing Laboratory Results 05/03/24 06:15 05/03/24 06:15 Urine Color Dark Yellow 05/02/24 07:53 Urine Appearance Cloudy (Clear) A 05/02/24 07:53 Urine pH 5.5 (4.5-7.5) 05/02/24 07:53 Ur Specific [place] 1.032 (1.000-1.030) H 05/02/24 07:53 Urine Protein 1+ (Negative) H 05/02/24 07:53 Urine Glucose (UA) Negative (Negative) 05/02/24 07:53 Urine Ketones 3+ (Negative) H 05/02/24 07:53 Urine Nitrite Negative (Negative) 05/02/24 07:53 Ur Leukocyte Esterase 1+ (Negative) H 05/02/24 07:53 Urine WBC (Auto) 11-20 /hpf (0-5) H 05/02/24 07:53 Urine RBC (Auto) 0-2 /hpf (0-2) 05/02/24 07:53 U Hyaline Cast (Auto) 3-5 /lpf (0-2) H 05/02/24 07:53 U Epithel Cells (Auto) >20 /hpf (0-2) H 05/02/24 07:53 Urine Bacteria (Auto) 3+ (None Seen) H 05/02/24 07:53 05/02/24 07:53 Urine Culture - Final Urine,Clean Catch Three types of organisms present, all high counts probable skin ashish. No further identifications or sensitivities to follow. Electrocardiogram Date: 05/02/24 DICTATED BY: Teo Howard MD Test Reason : Blood Pressure : */* mmHG Vent. Rate : 107 BPM Atrial Rate : 107 BPM P-R Int : 172 ms QRS Dur : 136 ms QT Int : 408 ms P-R-T Axes : 42 142 -7 degrees QTcB Int : 544 ms Sinus tachycardia with occasional Premature ventricular complexes Right bundle branch block Left posterior fascicular block Bifascicular block Abnormal ECG No previous ECGs available Confirmed by Teo Howard ([id number]) on 05/02/2024 3:06:20 PM
--- NOTE | 2024-05-03 15:31 | Hospitalist Progress Note ---
Date of Service May 03, 2024 Assessment & Plan (1) Colonic obstruction: Plan: Presents with 7 days without a bowel movement despite aggressive OTC measures, including enema and abdominal pain worse at night. CTAP: evidence of a high-grade colonic obstruction at the level of the sigmoid, where there is a focal transition point with shouldering. This could represents a stricture versus neoplasm. Given the appearance neoplasm is favored.The upstream colon is markedly distended and filled with stool. The cecum measures up to 10 cm in diameter and there is pericolonic inflammation and fluid. This likely represents an associated stercoral colitis. General surgery consulted - colostomy 05/[address] Nimo Herman - continue IV abx pip-tazo for now GI consulted - flex sig today (2) Hypertension: Plan: Not on medication at baseline - has been normal to mildly elevated, monitor (3) Asymptomatic bacteriuria: Plan: Abnormal UA, asymptomatic UA with high epis and culture with three organisms, skin ashish - contaminated No evidence of UTI (4) Renal cyst: Plan: Incidental finding - 8.5cm cyst from right upper pole - recommend outpatient follow up/monitoring Plan Chronic stable medical conditions: * hypothyroid - continue Synthroid start DVT ppx updated her and other daughter in room this morning Admission and Anticipated Discharge Date Admission Date: May 02, 2024 Subjective Doing well postop from colostomy. Pain at incision site controlled with meds otherwise no abdominal pain or nausea. Good stool output. Tolerated enema overnight No CP or dyspnea Physical Exam 2 Physical Exam: PHYSICAL EXAMINATION Last 24h vital signs reviewed, see documentation in flowsheet General: comfortable appearing, no distress, sitting up in chair HEENT: Normocephalic, atraumatic, pupils round and equal, sclerae anicteric, no conjunctival injection, moist mucus membranes Lungs: Normal respiratory effort. Clear to auscultation bilaterally. No RRW Heart: Regular rate and rhythm, no murmurs. No JVD Abdomen: Soft, tender near colostomy site no rrg, nondistended. Bowel sounds present. Extremities: Warm, dry, well-perfused. No extremity edema. Neuro: Alert and oriented x 4, face symmetric, moves 4 extremities well Psych: Normal affect and behavior Results & Data Results & Data Vital Signs (Past 12 Hours) Vital Signs Temp Pulse Pulse Resp BP Pulse Ox O2 Del Method 05/03/24 14:54 84 05/03/24 14:50 36.9 C 85 18 142/82 H 92 Room Air 05/03/24 11:32 36.8 C 82 18 111/71 92 Room Air 05/03/24 10:14 Nasal Cannula 05/03/24 08:04 36.8 C 83 18 118/68 94 Nasal Cannula 05/03/24 08:00 73 O2 Flow Rate 05/03/24 14:54 05/03/24 14:50 05/03/24 11:32 05/03/24 10:14 3 05/03/24 08:04 3 05/03/24 08:00 Laboratory Results 05/03/24 06:15 05/03/24 06:15 PG Care Time/CCT Total # of Minutes Spent Total Time Spent with Patient: Total time spent is greater than 50% in coordination of care (as documented) at patient's floor/unit and/or counseling patient: Coding Level of Care Code 98409 SUB INP/OBS CARE 2/35MIN Diagnoses Colonic obstruction K56.609 Hypertension I10 Asymptomatic bacteriuria R82.71 Renal cyst N28.1
--- NOTE | 2024-05-03 15:55 | GI REPORT ---
[facility] Patient: JOANNA JOHNS : 1945 Sex at : Female Age: 78 Years Procedure: Flexible Sigmoidoscopy Date: 05/03/2024 Attending Physician: Isaías Murguia MD Referring MD: Aleisha Jones Md Indications: - Sigmoid obstruction due to mass. Medications: - Monitored Anesthesia Care Complications: - No immediate complications. Estimated Blood Loss: - Estimated blood loss was minimal. Procedure: - The pediatric colonoscope was introduced through the anus and advanced to the sigmoid colon. - The flexible sigmoidoscopy was accomplished without difficulty. - The patient tolerated the procedure well. - The quality of the bowel preparation was poor. Findings: - Hemorrhoids were found on perianal exam. - An infiltrative completely obstructing large mass was found at 25 cm proximal to the anus and in the sigmoid colon. The mass was circumferential. No bleeding was present. This was biopsied with a cold forceps for histology. 2 mL of Spot ink was injected distal to the mass. Impression: - Preparation of the colon was poor. - Hemorrhoids found on perianal exam. - Malignant completely obstructing tumor at 25 cm proximal to the anus and in the sigmoid colon. Biopsied. - 2 mL of Spot ink was injected distal to the mass. - Obstructing sigmoid carcinoma. Recommendation: - Follow-up with surgery. - Await pathology results. Procedure Code(s): - 06382, Sigmoidoscopy, flexible; with biopsy, single or multiple Diagnosis Code(s): - C18.9, Malignant neoplasm of colon, unspecified - C18.7, Malignant neoplasm of sigmoid colon - K56.691, Other complete intestinal obstruction - K64.9, Unspecified hemorrhoids CPT(R) - 2023 copyright [employer]. All Rights Reserved. The CPT codes, CCI edits and ICD codes generated are intended as suggestions and were generated based on input data. These codes are preliminary and upon member certification manager review may be revised to meet current compliance and payer requirements. The provider is responsible for the final determination of appropriate codes, and modifiers. Isaías Murguia M.D. , This document has been electronically signed. Note Initiated:05/03/2024 Note Completed:05/03/2024 3:55 PM [id number]
--- NOTE | 2024-05-03 15:59 | Anesthesiology Progress Note ---
Date of Service May 03, 2024 Anesthesia Post Procedure Vital Signs Vital Signs: Temp Pulse Pulse Resp BP BP Pulse Ox 05/03/24 15:53 80 16 116/61 93 05/03/24 14:54 84 05/03/24 14:50 36.9 C 85 18 142/82 H 92 05/03/24 11:32 36.8 C 82 18 111/71 92 05/03/24 10:14 05/03/24 08:04 36.8 C 83 18 118/68 94 05/03/24 08:00 73 05/03/24 03:00 36.9 C 80 16 111/68 92 05/02/24 23:26 36.8 C 82 16 102/63 89 L 05/02/24 21:39 79 05/02/24 20:30 05/02/24 19:33 36.9 C 92 H 18 122/76 90 05/02/24 16:35 36.4 C L 84 18 146/81 H 91 O2 Del Method O2 Flow Rate 05/03/24 15:53 Room Air 05/03/24 14:54 05/03/24 14:50 Room Air 05/03/24 11:32 Room Air 05/03/24 10:14 Nasal Cannula 3 05/03/24 08:04 Nasal Cannula 3 05/03/24 08:00 05/03/24 03:00 Room Air 05/02/24 23:26 Nasal Cannula 3 05/02/24 21:39 05/02/24 20:30 Nasal Cannula 2 05/02/24 19:33 Room Air 05/02/24 16:35 Nasal Cannula 2 Pain Intensity Abdomen: Pain Intensity: 5 Right Lower Abdomen: Pain Intensity: 7 Transfer of Care Handoff Completed per policy Notes Mental Status: alert / awake / arousable and participated in evaluation Patient Amnestic to Procedure: Yes Nausea / Vomiting: adequately controlled Pain: adequately controlled Airway Patency, RR, SpO2: stable & adequate BP & HR: stable & adequate Hydration State: stable & adequate Anesthetic Complications: no major complications apparent and Pt Satisfied with anesthetic care
[2024-05-03] MEDS: ENDOSCOPIC MARKER 5 ML SYR TOP ONE (18:03)
[2024-05-03] MEDS: LIDOCAINE 2% 2 ML VIAL/AMP(20MG/ML) INFIL ONE (18:03)
[2024-05-03] MEDS: PROPOFOL IV EMULSION 10 MG/ML 20 ML VIAL IV ONE (18:03)
--- NOTE | 2024-05-03 18:11 | Communication Note ---
Date of Service: May 03, 2024 I stopped in to discuss the flex sig results with obstructing colon mass. [facility] had already discussed with Destiny Her daughter was present Ordered CT chest and CEA as recommended by Dr. Nimo Herman
[2024-05-03] MEDS: ENOXAPARIN INJ 40 MG/0.4 ML SYR SQ SCH (20:28)
[2024-05-03] MEDS: OPTIRAY 320 100ml IV ONE (20:51)
--- NOTE | 2024-05-04 01:12 | CT Scan Report ---
Exam(s): CT CHEST With Contrast IV Amt: optiray 320 91ml EXAM: CT Chest With Intravenous Contrast CLINICAL HISTORY: Reason for exam: colon mass, probable colorectal cancer. TECHNIQUE: Axial computed tomography images of the chest with intravenous contrast. CTDI is 24.89 mGy and DLP is 643.26 mGy-cm. Automated exposure control was utilized for the study. A dose lowering technique was utilized adhering to the principles of ALARA. CONTRAST: Patient received optiray 320 91ml of IV contrast COMPARISON: No relevant prior studies available. FINDINGS: Lungs: Underinflated lungs with mild bibasilar atelectasis, greater on the left than the right. No mass. Pleural space: Unremarkable. No pneumothorax. No significant effusion. Heart: Borderline cardiomegaly with mild coronary calcification. No pericardial effusion is seen. Bones/joints: Unremarkable. No acute fracture. No dislocation. Soft tissues: Unremarkable. Vasculature: The thoracic aorta is mildly calcified but nondilated. There is no aneurysm or dissection. The pulmonary arterial tree is adequately opacified with contrast. No pulmonary embolism is identified. Lymph nodes: Unremarkable. No enlarged lymph nodes. IMPRESSION: 1. The thoracic aorta is mildly calcified but nondilated. There is no aneurysm or dissection. 2. The pulmonary arterial tree is adequately opacified with contrast. No pulmonary embolism is identified. 3. Underinflated lungs with mild bibasilar atelectasis, greater on the left than the right. Electronically signed by: Dennis Bales MD 05/04/24 01:10 AM
[2024-05-04 08:49] LABS: Basophils # (auto) 0.04 K/uL (0.00-0.20); Basophils % (auto) 0.4 %; Eosinophils # (auto) 0.13 K/uL (0.00-0.50); Eosinophils % (auto) 1.2 %; Hematocrit (blood only) 37.1 % (37.0-47.0); Hemoglobin 12.5 g/dl (12.0-16.0); Immature Granulocytes # (auto) 0.03 K/uL (0.01-0.20); Immature Granulocytes % (auto) 0.3 %; Lymphocytes # (auto) 1.88 K/uL (1.20-3.40); Lymphocytes % (auto) 17.7 %; Mean Corpuscular Hemoglobin 31.5 pg (25.0-34.0); Mean Corpuscular Hgb Conc 33.7 g/dL (32.0-36.0); Mean Corpuscular Volume 93.5 fL (80.0-100.0); Mean Platelet Volume 9.8 fL (9.4-12.4); Monocytes # (auto) 1.17 K/uL (0.11-0.59); Neutrophils # (auto) 7.39 K/uL (1.40-6.50); Neutrophils % (auto) 69.4 %; Platelet Count 276 K/uL (130-400); RDW Coefficient of Variation 13.2 % (11.5-14.5); RDW Standard Deviation 45.4 fL (36.4-46.3); Red Blood Count 3.97 M/uL (4.20-5.40); White Blood Count 10.64 K/ul (4.8-10.8)
--- NOTE | 2024-05-04 09:01 | Gastroenterology Progress Note ---
Date of Service May 04, 2024 Assessment & Plan (1) Colonic mass: Plan: Pathology pending but suspect CA. Surgery has seen and if CA confirmed would get Oncology on board as well. IP GI Service will sign off. Admission and Anticipated Discharge Date Admission Date: May 02, 2024 Subjective Patient states she is feeling OK and ostomy is working well. Review of Systems Review of Systems: Negative except for HPI and below. Gastrointestinal: She has ostomy and states she has not been instructed on home care for this. Physical Exam Physical Exam: WD WN WF NAD Respiratory: Clear anteriorly Cardiovascular: Reg Gastrointestinal (Abdomen): Soft, NL BS, Ostomy Results & Data Results & Data Vital Signs (Past 12 Hours) Vital Signs Temp Pulse Resp BP Pulse Ox O2 Del Method 05/04/24 08:14 36.6 C 70 18 123/64 94 Room Air 05/03/24 23:18 36.4 C L 50 L 14 106/66 91 Room Air PG Care Time/CCT Total # of Minutes Spent Total Time Spent with Patient: Total time spent is greater than 50% in coordination of care (as documented) at patient's floor/unit and/or counseling patient: Coding Level of Care Code 97224 SUB INP/OBS CARE 07/27MIN Diagnoses Colonic mass K63.89
[2024-05-04 09:16] LABS: BUN Creatinine Ratio 21.8 (10-20); Calcium 8.5 mg/dl (8.6-10.3); Creatinine Clr Calc Pharmacy 50.7 ml/min; Potassium 3.2 mmol/L (3.5-5.1)
--- NOTE | 2024-05-04 12:06 | Surgery Progress Note ---
Date of Service May 04, 2024 Assessment & Plan (1) Colonic mass: Plan: await path ostomy working well; needs education good pain control plan per medical team Admission and Anticipated Discharge Date Admission Date: May 02, 2024 Subjective no complaints taking low fiber diet well ostomy working well GI note reviewed, colonic mass path pending Review of Systems Constitutional: no fever and no chills Respiratory: no cough and no dyspnea Cardiovascular: no chest pain Gastrointestinal: + abdominal pain; no nausea and no vomit ing Physical Exam Respiratory: normal respiratory effort, lungs clear to auscultation Cardiovascular: RRR, no murmur, no edema Gastrointestinal (Abdomen): Inspection/Auscultation: abdomen normal to inspection and normal bowel sounds; abdomen not distended Percussion/Palpation: + abdomen tender and abdomen soft; no guarding and abdomen not rigid ostomy pink and patent Skin: no rashes, warm and dry Results & Data Vital Signs (Past 12 Hours) Vital Signs Temp Pulse Resp BP Pulse Ox O2 Del Method 05/04/24 11:55 36.5 C 93 H 18 116/79 94 Room Air 05/04/24 08:14 36.6 C 70 18 123/64 94 Room Air 05/04/24 08:00 Room Air
[2024-05-04] MEDS: POTASSIUM CHLORIDE CRTAB 20 MEQ TABCR PO STA (16:16)
--- NOTE | 2024-05-04 17:16 | Hospitalist Progress Note ---
Date of Service May 04, 2024 Assessment & Plan (1) Colonic obstruction: Plan: 78 y/o healthy woman who presented with colonic obstruction due to colonic mass Presented with 7 days without a bowel movement despite aggressive OTC measures, including enema and abdominal pain worse at night. CTAP: evidence of a high-grade colonic obstruction at the level of the sigmoid, where there is a focal transition point with shouldering. This could represents a stricture versus neoplasm. Given the appearance neoplasm is favored.The upstream colon is markedly distended and filled with stool. The cecum measures up to 10 cm in diameter and there is pericolonic inflammation and fluid. This likely represents an associated stercoral colitis. General surgery consulted - colostomy 05/[address] Nimo Herman - will stop antibiotics Underwent flex sig 05/03 - completely obstructing sigmoid colon mass at [address] chest with contrast - no evidence of metastatic disease. CEA 0.9 (2) Hypertension: Plan: Not on medication at baseline - has been normal to mildly elevated, monitor (3) Asymptomatic bacteriuria: Plan: Abnormal UA, asymptomatic UA with high epis and culture with three organisms, skin ashish - contaminated No evidence of UTI (4) Renal cyst: Plan: Incidental finding - 8.5cm cyst from right upper pole - recommend outpatient follow up/monitoring Plan Chronic stable medical conditions: * hypothyroid - continue Synthroid DVT ppx - enox updated her and daughter 05/03 Admission and Anticipated Discharge Date Admission Date: May 02, 2024 Subjective doing well. pain at colostomy site improved eating well. did have [facility] visit but sounds like needs more ostomy education Physical Exam 2 Physical Exam: PHYSICAL EXAMINATION Last 24h vital signs reviewed, see documentation in flowsheet General: up eating lunch HEENT: Normocephalic, atraumatic, pupils round and equal, sclerae anicteric, no conjunctival injection, moist mucus membranes Lungs: Normal respiratory effort. Clear to auscultation bilaterally. No RRW Heart: Regular rate and rhythm, no murmurs. No JVD Abdomen: Soft, nontender, nondistended. Bowel sounds present. Extremities: Warm, dry, well-perfused. No extremity edema. Neuro: Alert and oriented x 4, face symmetric, moves 4 extremities well Psych: Normal affect and behavior Results & Data Results & Data Vital Signs (Past 12 Hours) Vital Signs Temp Pulse Resp BP Pulse Ox O2 Del Method 05/04/24 15:46 36.9 C 84 18 119/75 94 Room Air 05/04/24 11:55 36.5 C 93 H 18 116/79 94 Room Air 05/04/24 08:14 36.6 C 70 18 123/64 94 Room Air 05/04/24 08:00 Room Air Laboratory Results 05/04/24 07:57 05/04/24 07:57 PG Care Time/CCT Total # of Minutes Spent Total Time Spent with Patient: Total time spent is greater than 50% in coordination of care (as documented) at patient's floor/unit and/or counseling patient: Coding Level of Care Code 21134 SUB INP/OBS CARE 2/35MIN Diagnoses Colonic obstruction K56.609 Hypertension I10 Asymptomatic bacteriuria R82.71 Renal cyst N28.1
[2024-05-05 06:53] LABS: Basophils # (auto) 0.05 K/uL (0.00-0.20); Basophils % (auto) 0.6 %; Eosinophils # (auto) 0.35 K/uL (0.00-0.50); Eosinophils % (auto) 4.1 %; Hematocrit (blood only) 37.1 % (37.0-47.0); Hemoglobin 12.2 g/dl (12.0-16.0); Immature Granulocytes # (auto) 0.04 K/uL (0.01-0.20); Immature Granulocytes % (auto) 0.5 %; Lymphocytes # (auto) 1.89 K/uL (1.20-3.40); Mean Corpuscular Hemoglobin 30.3 pg (25.0-34.0); Mean Corpuscular Hgb Conc 32.9 g/dL (32.0-36.0); Mean Corpuscular Volume 92.1 fL (80.0-100.0); Mean Platelet Volume 9.8 fL (9.4-12.4); Monocytes # (auto) 0.95 K/uL (0.11-0.59); Monocytes % (auto) 11.1 %; Neutrophils # (auto) 5.31 K/uL (1.40-6.50); Neutrophils % (auto) 61.7 %; Platelet Count 273 K/uL (130-400); RDW Coefficient of Variation 13.1 % (11.5-14.5); RDW Standard Deviation 44.5 fL (36.4-46.3); Red Blood Count 4.03 M/uL (4.20-5.40); White Blood Count 8.59 K/ul (4.8-10.8)
[2024-05-05 07:16] LABS: BUN Creatinine Ratio 20.3 (10-20); Calcium 8.6 mg/dl (8.6-10.3); Creatinine Clr Calc Pharmacy 59.6 ml/min; Potassium 3.3 mmol/L (3.5-5.1)
[2024-05-05] MEDS: POTASSIUM CHLORIDE CRTAB 20 MEQ TABCR PO STA (08:34)
--- NOTE | 2024-05-05 10:38 | Hospitalist Progress Note ---
Date of Service May 05, 2024 Assessment & Plan (1) Colonic obstruction: Plan: 78 y/o healthy woman who presented with colonic obstruction due to colonic mass Presented with 7 days without a bowel movement despite aggressive OTC measures, including enema and abdominal pain worse at night. CTAP: evidence of a high-grade colonic obstruction at the level of the sigmoid, where there is a focal transition point with shouldering. This could represents a stricture versus neoplasm. Given the appearance neoplasm is favored.The upstream colon is markedly distended and filled with stool. The cecum measures up to 10 cm in diameter and there is pericolonic inflammation and fluid. This likely represents an associated stercoral colitis. General surgery consulted - colostomy 05/[address] Nimo Herman - will need more ostomy teaching from [facility] tomorrow Underwent flex sig 05/03 - completely obstructing sigmoid colon mass at [address] chest with contrast - no evidence of metastatic disease. CEA 0.9 (2) Hypertension: Plan: Not on medication at baseline - seems to have normalized (3) Asymptomatic bacteriuria: Plan: Abnormal UA, asymptomatic UA with high epis and culture with three organisms, skin ashish - contaminated No evidence of UTI (4) Renal cyst: Plan: Incidental finding - 8.5cm cyst from right upper pole - recommend outpatient follow up/monitoring Plan hypokalemiapotassium 3.3, ordered oral replacement. total body depletion related to poor oral intake prior to admission because of bowel obstruction hypothyroid - continue Synthroid DVT ppx - enox updated her and daughter 05/03 Admission and Anticipated Discharge Date Admission Date: May 02, 2024 Liza Dixon is doing well less pain at ostomy site, some issues with leaking, eating well no nausea Physical Exam 2 Physical Exam: PHYSICAL EXAMINATION Last 24h vital signs reviewed, see documentation in flowsheet General: sitting up in the chair HEENT: Normocephalic, atraumatic, pupils round and equal, sclerae anicteric, no conjunctival injection, moist mucus membranes Lungs: Normal respiratory effort. Clear to auscultation bilaterally. No RRW Heart: Regular rate and rhythm, no murmurs. No JVD Abdomen: Soft, nontender, nondistended. Bowel sounds present. ostomy site is pink well-perfused, normal stool output in bag Extremities: Warm, dry, well-perfused. No extremity edema. Neuro: Alert and oriented x 4, face symmetric, moves 4 extremities well Psych: Normal affect and behavior Results & Data Results & Data Vital Signs (Past 12 Hours) Vital Signs Temp Pulse Resp BP Pulse Ox O2 Del Method 05/05/24 08:00 Room Air 05/05/24 07:49 36.8 C 73 20 138/71 98 Room Air Laboratory Results 05/05/24 06:11 05/05/24 06:11 PG Care Time/CCT Total # of Minutes Spent Total Time Spent with Patient: Total time spent is greater than 50% in coordination of care (as documented) at patient's floor/unit and/or counseling patient: Coding Level of Care Code 30553 SUB INP/OBS CARE 2/35MIN Diagnoses Colonic obstruction K56.609 Hypertension I10 Asymptomatic bacteriuria R82.71 Renal cyst N28.1
--- NOTE | 2024-05-05 10:48 | Surgery Progress Note ---
Date of Service May 05, 2024 Assessment & Plan (1) Colonic mass: Plan: good post-op progress path pending Admission and Anticipated Discharge Date Admission Date: May 02, 2024 Subjective no complaints Review of Systems Constitutional: no fever and no chills Respiratory: no cough and no dyspnea Cardiovascular: no chest pain Gastrointestinal: no abdominal pain, no nausea and no vomiting Neurologic: no localized weakness and no generalized weakness Psychiatric: no behavioral changes Physical Exam Constitutional: WD/WN, vitals as above Neck: trachea midline Gastrointestinal (Abdomen): Inspection/Auscultation: abdomen normal to inspection and normal bowel sounds; abdomen not distended Percussion/Palpation: + abdomen tender and abdomen soft; no guarding and abdomen not rigid ostomy working well Skin: no rashes, warm and dry Results & Data Vital Signs (Past 12 Hours) Vital Signs Temp Pulse Resp BP Pulse Ox O2 Del Method 05/05/24 08:00 Room Air 05/05/24 07:49 36.8 C 73 20 138/71 98 Room Air
[2024-05-06 07:22] LABS: BUN Creatinine Ratio 16.3 (10-20); Calcium 8.8 mg/dl (8.6-10.3); Creatinine Clr Calc Pharmacy 47.9 ml/min; Potassium 3.6 mmol/L (3.5-5.1)
--- NOTE | 2024-05-06 07:39 | Surgery Progress Note ---
<Statement entered by Leelee Capone, DO - 05/06/24 07:40> I have seen and examined this patient this am with the surgical team. She has done well over the weekend and has been tolerating her diet. She is pending education for colostomy bag application and discharge. Date of Service May 06, 2024 Assessment & Plan (1) Colonic mass: Plan: Pt is s/p transverse loop colostomy on 05/02 for colonic obstruction 2/2 sigmoid mass GI performed sigmoidoscopy and discovered an obstruction sigmoid mass, 25cm proximal to anus. biopsies have been taken & area tattooed pathology is pending at this time She is eating and having + bowel function. pain controlled Once pouching issues are resolved and pt feels comfortable caring for ostomy she may be discharged as early as today F/u with dr. capone in 1 week and can discuss pathology results and next steps whether that be referral to colorectal vs consideration of further surgery at [facility] Admission and Anticipated Discharge Date Admission Date: May 02, 2024 Subjective Patient feeling well. Tolerating low fiber over the wknd. Ostomy is functioning. Said there were some problems with fitting her ostomy and needed changed this AM. Pending pathology wondering if she can stay with yehuda niño for her care. Physical Exam Physical Exam: awake/alert, no distress Respiratory: normal respiratory effort Gastrointestinal (Abdomen): Percussion/Palpation: abdomen soft + ostomy putting out liquid brown stool. pinkish/red and viable Results & Data Vital Signs (Past 12 Hours) Vital Signs Temp Pulse Resp BP Pulse Ox O2 Del Method 05/05/24 22:50 98.6 F 89 14 137/73 93 Room Air 05/05/24 21:00 Room Air PG Care Time/CCT Total # of Minutes Spent Total Time Spent with Patient: Total time spent is greater than 50% in coordination of care (as documented) at patient's floor/unit and/or counseling patient: Coding Level of Care Code 23752 Post Operative Follow-Up Diagnoses Colonic mass K63.89
[2024-05-06 07:57] VITALS: RESP 16; TEMP 98.4; O2SAT 96
[2024-05-06 16:38] VITALS: BP 102/63; PULSE 86
--- NOTE | 2024-05-06 19:00 | Discharge Summary ---
Discharge Summary Date of Service May 06, 2024 Principal Dx & Hospital Course #1 = Principal Diagnosis (1) Colonic obstruction: 78 y/o healthy woman who presented with colonic obstruction due to colonic mass Presented with 7 days without a bowel movement despite aggressive OTC measures, including enema and abdominal pain worse at night. CTAP: evidence of a high-grade colonic obstruction at the level of the sigmoid, where there is a focal transition point with shouldering. This could represents a stricture versus neoplasm. Given the appearance neoplasm is favored.The upstream colon is markedly distended and filled with stool. The cecum measures up to 10 cm in diameter and there is pericolonic inflammation and fluid. This likely represents an associated stercoral colitis. General surgery consulted - colostomy 05/[address] Nimo Herman - ostomy teaching provided by RICHARD - doing extremely well postop, tolerating low fiber diet Underwent flex sig 05/03 - completely obstructing sigmoid colon mass at 25 cm. Biopsy resulted today, well differentiated adenocarcinoma CT chest with contrast - no evidence of metastatic disease. CEA 0.9. Not there is 8 cm left renal cyst on abdominal CT (only mentioned in body of report) - follow up with renal ultrasound but likely benign/simple She will follow up with Dr. Capone next week for postop check and discuss future surgical plans. (2) Adenocarcinoma of colon: New diagnosis, see above (3) Asymptomatic bacteriuria: Abnormal UA, asymptomatic UA with high epis and culture with three organisms, skin ashish - contaminated No evidence of UTI (4) Renal cyst: Incidental finding - 8.5cm cyst from right upper pole - recommend outpatient renal ultrasound for further characterization Plan hypokalemiareplaced hypothyroid - continue Synthroid Notes For Next Care Provider renal cyst - recommend outpatient renal ultrasound for further characterization Medication Changes From Visit none Admission HPI Per Admitting Provider Destiny with a 78F with a past medical hx of hypothyroidism and HTN not on medications. She presents to the ER accompanied by her daughter with a chief concern of constipation. States that she last had a bowel movement 1 week ago, last 04/25. Since Monday she has been experiencing cramping. Has been taking MiraLAX, milk of magnesium and is attempted to enemas at home without a bowel movement. The cramping/pain is mainly in the lower abdomen. Patient aware that CT scan shows an obstruction. Has not had a colonoscopy before. Has not been seen by surgery or GI at the time of my encounter. She reports that she has a prolapsed bladder and chronically wears depends. No UTI symptoms currently. Recent changes in medications: no Take medications today: no Alcohol/smoking: no CPAP: no Code Status: Full Code ER course: IV tylenol Zosyn Discharge Exam PHYSICAL EXAMINATION Last 24h vital signs reviewed, see documentation in flowsheet General: sitting up in the chair HEENT: Normocephalic, atraumatic, pupils round and equal, sclerae anicteric, no conjunctival injection, moist mucus membranes Lungs: Normal respiratory effort. Clear to auscultation bilaterally. No RRW Heart: Regular rate and rhythm, no murmurs. No JVD Abdomen: Soft, nontender, nondistended. Bowel sounds present. ostomy site is pink well-perfused, normal stool output in bag Extremities: Warm, dry, well-perfused. No extremity edema. Neuro: Alert and oriented x 4, face symmetric, moves 4 extremities well Psych: Normal affect and behavior Discharge Plan Discharge Items Patient Disposition: Home - Self-Care Reason For Visit: COLONIC OBSTRUCTION Discharge Diagnosis: creation of colostomy for colonic bowel obstruction Condition on Discharge: Good Activity: Per Instructions section Lifting: No more than 10 pounds Bathing Comment: may shower; no soaking in tubs/pools x 2 weeks Exercise/Sports: Wait until after follow-up appointment Driving/Machine Use: no driving if taking any narcotics for pain Non-emergency contact: Surgeon Call non-emergency contact if: your symptoms worsen, your pain is worsening, you have a fever, your temperature is above 101.5, your wound has increased redness, your wound has increased drainage and your wound pain has increased Follow-up/Referrals: Leelee Capone DO [Physician] - 05/14/24 10:45 am (General Surgery follow up) Mckay Kumar DO [Primary Care Provider] - 05/16/24 7:40 am (Hospital follow up appointment) Diet: Low Fiber Addtl Attending Provider Instructions: You were treated for colon obstruction by a mass. The colon obstruction was relieved by a colostomy A biopsy of the mass unfortunately showed a colon cancer Please care for your ostomy as you have been instructed and taught by the wound care nurse Please continue on a low fiber diet until otherwise stated by the surgeon Follow up renal ultrasound recommended for right renal cyst which was incidentally seen on CT - they are often simple cysts which are benign, but can be better characterized with ultrasound. This can be arranged in primary care. Follow up with Dr. Capone in 1 week. She will continue working with you on the plan of care. It was a pleasure taking care of you in the hospital, Aleisha Jones MD Pending Studies at Discharge: Yes (pathology from colon mass biopsy) Stand-Alone Forms: My [facility], Smoking Cessation Medications and DC Order Prescriptions: Continued levothyroxine 112 mcg tablet 112 mcg PO QAM Discharge Orders: Discharge Order (Routine); Ordered 05/06/24 Ordered By: Aleisha Fierro/Other Patient Handouts: Low-Fiber Diet, Colostomy Dc Admission Data Admit Date/Time: 05/02/24 09:11 Attending Provider: Aleisha Jones Admit Provider: Camille Red Primary Care Provider: Mckay Kumar Other Providers: Miguelito Kaminski; [facility]; [facility]; Aleisha Jones; Leelee Capone Other Interventions: Discharge Summary Assessment (RN) Last Done: 05/06/24 16:38 Hospital Stay Data Consultations 05/02/24 08:51 ED Decision to Admit Stat 05/02/24 09:45 Consult General Surgery Routine Procedures Performed Operation Date: 05/03/24 16:30 Actual Procedures p Flexible Sigmoidoscopy Biopsy - Isaías Murguia MD Diagnostic Imagining Performed 05/02/24 07:42 CT abd pelvis IV con only Stat 05/03/24 17:48 CT chest diagnostic w con Routine Pending Results Patient Have Any Pending Studies at Discharge: Yes (pathology from colon mass biopsy) Discharge Instructions Given to Patient (Per Discharging Provider) You were treated for colon obstruction by a mass. The colon obstruction was relieved by a colostomy A biopsy of the mass unfortunately showed a colon cancer Please care for your ostomy as you have been instructed and taught by the wound care nurse Please continue on a low fiber diet until otherwise stated by the surgeon Follow up renal ultrasound recommended for right renal cyst which was incidentally seen on CT - they are often simple cysts which are benign, but can be better characterized with ultrasound. This can be arranged in primary care. Follow up with Dr. Capone in 1 week. She will continue working with you on the plan of care. It was a pleasure taking care of you in the hospital, Aleisha Jones MD Total Time Total Time Spent Total Time Spent (In Minutes): I personally spent: today on clinical care activities including: reviewing chart notes and vital signs reviewing labs reviewing studies discussion with business info consultant(s) - surgeon, wound ostomy nurse examining and counseling the patient writing orders writing discharge instructions documentation Coding Level of Care Code 60123 INP/OBS DISCH >30 MIN Diagnoses Colonic obstruction K56.609 Adenocarcinoma of colon C18.9 Asymptomatic bacteriuria R82.71 Renal cyst N28.1
== END 2024-05-06 17:48 | disposition home or self-care (01) | DRG 330 ==
LOC: ED 07:07 → SUATTDRO 09:11 → 2N 09:11